=== PATIENT | male | born 1995 | race Caucasian/White ===

== ENCOUNTER 2019-10-03 16:18 | Emergency (ER) | payer BC ==
[~2019-10-03] VITALS: Ht 165.1 cm; Wt 69.0 kg
[2019-10-03] MEDS ORDERED: LORAZEPAM 1MG TABLET PO ONE (20:00)
[2019-10-03 21:57] VITALS: BP 119/73
== END 2019-10-03 22:27 | disposition home or self-care (01) ==
LOC: ER 16:18
DX: F41.9 Anxiety disorder, unspecified (principal); R06.02 Shortness of breath
CPT/HCPCS: 93005; 99284; A4217